=== PATIENT | male | born 1955 | race Caucasian/White ===

== ENCOUNTER 2017-02-10 12:29 | Emergency (ER) | payer BC ==
[2017-02-10 14:05] VITALS: BP 124/64
--- NOTE | 2017-02-10 14:45 | UC ---
UC General HPI - HPI Summary HPI Summary: 61 y/o male PMHX HTN, DM, Quadruple Bypass presents to the urgent care c/o severe diarrhea w/ abdominal cramping pain, loss weight for the past 2 weeks. Pt states It started with decrease appetite. His diarrhea became worse yesterday with 9 episodes in the last 2 days. One episode of N/vomiting this morning. He can't recall eating something different when symptoms started. Denies being outside the country lately. Pt denies fever, SOB, chest pain, urinary symptoms, FARRELL. - History of Current Complaint Chief Complaint: UCGeneralIllness Stated Complaint: NAUSEA, VOMITING, DIARRHEA Time Seen by Provider: 02/10/17 14:35 Hx Obtained From: Patient Onset/Duration: Gradual Onset, Lasting Weeks, Still Present Timing: Constant Onset Severity: Mild Current Severity: Moderate Pain Intensity: 0 Associated Signs & Symptoms: Positive: Decreased Oral Intake, Nausea, Vomiting, Weakness. Negative: Back Pain, Fever, Headache, Hematemesis, Melena, Palpitations, SOB - Allergy/Home Medications Allergies/Adverse Reactions: Allergies Allergy/AdvReac Type Severity Reaction Status Date / Time No Known Allergies Allergy Verified 02/10/17 13:54 Home Medications: Home Medications Sitagliptin Phosphate [Januvia] 100 mg PO DAILY 02/10/17 [History Confirmed ] Terazosin CAP* [Hytrin CAP*] 2 mg PO BEDTIME 02/10/17 [History Confirmed ] Valsartan/HCTZ 320/25(NF) [Diovan Hct 320/25(NF)] 1 tab PO DAILY 02/10/17 [ History Confirmed 02/10/17] PMH/Surg Hx/FS Hx/Imm Hx Previously Healthy: Yes Endocrine History: Diabetes Cardiovascular History: Cardiac Disease, Hypertension - Surgical History Surgical History: Yes Surgery Procedure, Year, and Place: quad bypass 2004, right 2nd digit repair after getting it caught in [employer] - Family History Known Family History: Positive: Hypertension, Other - positive FMH for URI - Social History Occupation: Retired Lives: With Family Alcohol Use: None Substance Use Type: None Smoking Status (MU): Never Smoked Tobacco Review of Systems Constitutional: Fatigue, Other - decrease appetite, weight loss Skin: Negative Eyes: Negative ENT: Negative Respiratory: Negative Cardiovascular: Negative Gastrointestinal: Abdominal Pain - cramping, Vomiting, Diarrhea - for 2 weeks becoming severe in the past 2 days, Nausea Genitourinary: Negative Motor: Negative Neurovascular: Negative Musculoskeletal: Negative Neurological: Negative Psychological: Negative All Other Systems Reviewed And Are Negative: Yes Physical Exam Triage Information Reviewed: Yes Appearance: Well-Appearing, No Pain Distress, Well-Nourished, Obese Vital Signs: Initial Vital Signs Temp 98.7 F 02/10/17 13:49 Pulse 76 02/10/17 13:49 Resp 14 02/10/17 13:49 BP 124/64 02/10/17 13:49 Pulse Ox 100 02/10/17 13:49 Vital Signs Reviewed: Yes Eye Exam: Normal Eyes: Positive: Conjunctiva Clear - PERRLA, EOMI, fundi grossly normal ENT Exam: Normal ENT: Positive: Normal ENT inspection, Hearing grossly normal, Pharynx normal, TMs normal Dental Exam: Normal Neck exam: Normal Neck: Positive: Supple, Nontender, No Lymphadenopathy Respiratory Exam: Normal Respiratory: Positive: Chest non-tender, Lungs clear, Normal breath sounds Cardiovascular Exam: Normal Cardiovascular: Positive: RRR, No Murmur, Pulses Normal, Brisk Capillary Refill Abdominal Exam: Normal Abdomen Description: Positive: Nontender, Soft. Negative: CVA Tenderness (R), CVA Tenderness (L) Bowel Sounds: Positive: Hyperactive Musculoskeletal Exam: Normal Musculoskeletal: Positive: Strength Intact, ROM Intact, No Edema Neurological Exam: Normal Neurological: Positive: Alert Psychological Exam: Normal Skin Exam: Normal Course/Dx - Course Course Of Treatment: 61 y/o male PMHX HTN, DM, Quadruple Bypass presents to the urgent care c/o severe diarrhea w/ abdominal cramping pain, loss weight for the past 2 weeks. Pt states It started with decrease appetite. His diarrhea became worse yesterday with 9 episodes in the last 2 days. One episode of N/ vomiting this morning. He can't recall eating something different when symptoms started. Denies being outside the country lately. Pt denies fever, SOB, chest pain, urinary symptoms, FARRELL. HX obtained. Case discussed with Dr Traylor and He recommende the PT to immediately go to the ER since he has been with severe diarrhea, decrease appetite and weight loss for the past 2 weeks. Pt decline abulance transport and decided to go to the [place] [facility] ER by private car. Pt left the clinic hemodinamically stable A&OX3. - Differential Dx - Multi-Symptom Provider Diagnoses: 1- Acute diarrhea. 2-Weight loss. 3-Vomiting - Physician Notifications Discussed Patient Care With: Marko Traylor - Dr Traylor agree with PT care and disposition Discharge - Discharge Plan Condition: Stable Disposition: TRANS HIGHER LVL OF CARE FAC Patient Education Materials: Acute Diarrhea (ED) Referrals: Doni Lujan MD [Primary Care Provider] - Additional Instructions: I strongly recommend to go immediately to the [facility] ER for further evaluation and treatment, You are presenting with severe diarrhea, loss weight , emesis and decrease appetite for several day.
== END 2017-02-10 15:08 | disposition short-term general hospital (02) ==
LOC: UCCORT 12:29
DX: R19.7 Diarrhea, unspecified (principal); R63.4 Abnormal weight loss; R11.10 Vomiting, unspecified; R53.83 Other fatigue; E11.9 Type 2 diabetes mellitus without complications; I51.9 Heart disease, unspecified; I10 Essential (primary) hypertension; Z95.1 Presence of aortocoronary bypass graft; E66.9 Obesity, unspecified
CPT/HCPCS: 99211; G0463

== ENCOUNTER 2018-10-12 16:52 | Emergency (ER) | payer BC ==
[2018-10-12 17:54] VITALS: BP 146/69
--- NOTE | 2018-10-12 18:10 | UC ---
Respiratory Complaint HPI - HPI Summary HPI Summary: Ill with URI symptoms since last Friday. the symptoms moved down into his chest and he has a mildly congested cough. - History of Current Complaint Chief Complaint: UCGeneralIllness Stated Complaint: COUGH FEVER CONGESTION HEADACHE Time Seen by Provider: 10/12/18 18:09 Hx Obtained From: Patient Onset/Duration: Gradual Onset Timing: Intermittent Episodes Severity Initially: Moderate Severity Currently: Mild Pain Intensity: 0 Character: Cough: Nonproductive Alleviating Factors: Nothing Associated Signs And Symptoms: Positive: URI, Nasal Congestion - Risk Factors Pulmonary Embolism Risk Factors: Negative Cardiac Risk Factors: Negative Pseudomonas Risk Factors: Negative Tuberculosis Risk Factors: Negative - Allergies/Home Medications Allergies/Adverse Reactions: Allergies Allergy/AdvReac Type Severity Reaction Status Date / Time No Known Allergies Allergy Verified 10/12/18 17:54 Home Medications: Home Medications Canagliflozin (NF) [Invokana (NF)] 100 mg PO DAILY 10/12/18 [History Confirmed 10/12/18] Irbesartan [Avapro] 75 mg PO DAILY 10/12/18 [History Confirmed 10/12/18] PMH/Surg Hx/FS Hx/Imm Hx Previously Healthy: Yes - Surgical History Surgical History: Yes Surgery Procedure, Year, and Place: quad bypass 2004, right 2nd digit repair after getting it caught in [employer] - Family History Known Family History: Positive: Hypertension, Other - positive FMH for URI - Social History Alcohol Use: None Substance Use Type: None Smoking Status (MU): Never Smoked Tobacco Review of Systems All Other Systems Reviewed And Are Negative: Yes ENT: Positive: Nasal Discharge Respiratory: Positive: Cough - Nonproductive Is Patient Immunocompromised?: No Physical Exam Triage Information Reviewed: Yes Appearance: Well-Appearing, No Pain Distress, Well-Nourished Vital Signs: Initial Vital Signs Temp 97.4 F 10/12/18 17:51 Pulse 84 10/12/18 17:51 Resp 20 10/12/18 17:51 BP 146/69 10/12/18 17:51 Pulse Ox 96 10/12/18 17:51 Vital Signs Reviewed: Yes Eye Exam: Normal ENT Exam: Normal Neck exam: Normal Respiratory Exam: Normal Respiratory: Positive: No respiratory distress, No accessory muscle use, Rhonchi - Rhonchi RML anteriorly Cardiovascular: Positive: RRR, No Murmur, Pulses Normal, Brisk Capillary Refill Musculoskeletal Exam: Normal Neurological Exam: Normal Psychological Exam: Normal Skin Exam: Normal Respiratory Course/Dx - Course Course Of Treatment: CXR: Read by myself and Dr. Mcleod as RML infiltrate. Will treat with a Zpak and pt has appt with PCP this week. - Differential Dx/Diagnosis Provider Diagnosis: Community acquired pneumonia Discharge - Sign-Out/Discharge Documenting (check all that apply): Patient Departure All imaging exams completed and their final reports reviewed: No - Discharge Plan Condition: Fair Disposition: HOME Prescriptions: Azithromyxin PRINCESS (NF) [Z-Princess (Zithromax) 250 mg tabs #6] 2 tab PO .TODAY, THEN 1 DAILY #6 tab Patient Education Materials: Pneumonia (ED) Referrals: Doni Lujan MD [Primary Care Provider] - Additional Instructions: Increase fluids, Follow up with your primary care provider in 3-4 days if no improvememt - Billing Disposition and Condition Condition: FAIR Disposition: Home
--- NOTE | 2018-10-13 09:50 | UC ---
- Progress Note Progress Note: Patient Name: GRIS BECERRA Medical Record#: [id number] Ordering Physician: Di Erazo SE[employer] Acct.#: [id number] : 1955 Age: 62 Sex: M Location: [facility] Exam Date: 10/12/181811 ADM Status: DEP ER Order Information: CHEST PA & LAT 2 VWS Accession Number: [id number] CPT: 68243 INDICATION: Productive cough for 6 days. COMPARISON: There are no relevant prior studies available for comparison. TECHNIQUE: Dual-energy PA and lateral views of the chest were obtained. FINDINGS: The patient appears to be status post coronary bypass surgery. There are multiple sternal sutures and mediastinal clips present. The heart is mildly enlarged. There is a small patchy infiltrate which projects over the right midlung. No pleural effusion is seen. There is flattening of the diaphragms suggestive of chronic obstructive pulmonary disease. IMPRESSION: 1. SMALL INFILTRATE IN THE RIGHT LUNG SUSPICIOUS FOR PNEUMONIA. RECOMMEND FOLLOW -UP CHEST X-RAYS TO RESOLUTION. 2. POSTSURGICAL CHANGES. 3. COPD. R0 Preliminary Imaging Read R0 <Electronically signed by Damion Drummond MD in [place]> 10/13/18738 Dictated By: Damion Drummond MD Dictated Date/Time: 10/13/18738 Transcribed Date/Time: 10/13/18735 Copy to: CC:Di Erazo NP; Doni Lujan MD; Franco Mcleod MD Imaging - [facility] Imaging - [facility] [address] [address] ph [phone]) ph ([phone]) ph ([phone]) This report is only to be considered final once signed by the Provider(s) as displayed in the "<Electronically Signed by >" field (s). Absence of a signature indicates the report is in a draft status and still needs to be finalized. In the event this document was created by someone other than the signing Provider, the individual initiating the document will be listed in the "Entered by:" or "Dictated by:" villeda. 1 of 2 Course/Dx - Diagnoses Provider Diagnoses: Community acquired pneumonia Discharge - Sign-Out/Discharge Documenting (check all that apply): Post-Discharge Follow Up All imaging exams completed and their final reports reviewed: Yes - Discharge Plan Condition: Fair Disposition: HOME Prescriptions: Azithromyxin KANA (NF) [Z-Kana (Zithromax) 250 mg tabs #6] 2 tab PO .TODAY, THEN 1 DAILY #6 tab Patient Education Materials: Pneumonia (ED) Referrals: Doni Lujan MD [Primary Care Provider] - Additional Instructions: Increase fluids, Follow up with your primary care provider in 3-4 days if no improvememt - Billing Disposition and Condition Condition: FAIR Disposition: Home
== END 2018-10-12 18:51 | disposition home or self-care (01) ==
LOC: UCCORT 16:52
DX: J18.9 Pneumonia, unspecified organism (principal); J44.9 Chronic obstructive pulmonary disease, unspecified; Z95.1 Presence of aortocoronary bypass graft
CPT/HCPCS: 71046; 99212; G0463